=== PATIENT | male | born 1965 | race Caucasian/White ===

== ENCOUNTER → 2024-06-28 10:14 | Outpatient (REF) | payer BC, SELFPAY | LOC: EMG 10:14 | PROVIDERS: ATTENDING PHYSICIAN Orthopaedic Surgery; FAMILY PHYSICIAN Family Medicine | DX: R20.0 Anesthesia of skin (principal) | CPT/HCPCS: 95886; 95909 ==

== ENCOUNTER 2024-06-29 06:22 | Day surgery (SDC) | payer BC, SELFPAY | END 2024-06-29 10:13 | disposition home or self-care (01) | LOC: GI 06:22 | PROVIDERS: ATTENDING PHYSICIAN Internal Medicine Gastroenterology | DX: Z12.11 Encounter for screening for malignant neoplasm of colon (principal); K64.8 Other hemorrhoids; K57.30 Diverticulosis of large intestine without perforation or abscess without bleeding; Z86.0100 Personal history of colon polyps, unspecified | CPT/HCPCS: G0105 ==